=== PATIENT | male | born 1995 | race Caucasian/White ===

== ENCOUNTER 2016-09-23 18:28 | Emergency (ER) | payer SELFPAY ==
[2016-09-23 18:32] VITALS: BP 144/74; PULSE 68; TEMP 98; BMI 24.3
[2016-09-23] MEDS ORDERED: SULFAMETHOXAZOLE/TRIMETHOPRIM 800MG/160MG D.S. TABLET PO ONE (19:21)
[2016-09-23] MEDS ORDERED: BACITRACIN 30 GM TUBE TOPICAL OINTMENT ONE (19:21)
[2016-09-23] MEDS ORDERED: SULFAMETHOXAZOLE/TRIMETHOPRIM 800MG/160MG D.S. TABLET ONE (19:27)
--- NOTE | 2016-09-23 19:28 | PDOC ---
History of Present Illness - General Chief Complaint: Ingrown toenail Stated Complaint: TOE INJURY Time Seen by Provider: 09/23/16 19:05 History Source: Patient Exam Limitations: No Limitations - History of Present Illness Initial Comments: 09/23/16 19:22 ER with complaints of pain, swelling, and infection of his left great toenail. 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 Denies drainage, denies any recent trauma, denies fevers. Timing/Duration: reports: getting worse Severity: Yes: mild, moderate Location: reports: feet (left ghreat toenail) Past History - Travel Traveled outside of the country in the last 30 days: No Close contact w/someone who was outside of country & ill: No - Past Medical History Allergies/Adverse Reactions: Allergies Allergy/AdvReac Type Severity Reaction Status Date / Time No Known Allergies Allergy Verified 09/23/16 18:32 Home Medications: Ambulatory Orders Sulfamethoxazole/Trimethoprim [Bactrim *Ds*] 1 each PO BID #14 tablet 09/23/16 Other medical history: PATIENT DENIES MEDICAL HISTORY - Psycho/Social/Smoking Cessation Hx Suicidal Ideation: No Smoking History: Never smoked Hx Alcohol Use: No Drug/Substance Use Hx: No Review of Systems - Review of Systems Able to Perform ROS?: No Is the patient limited Pashto proficient: No Constitutional: Yes: See HPI. No: Symptoms Reported HEENTM: Yes: See HPI. No: Symptoms Reported Musculoskeletal: No: Symptoms Reported Integumentary: Yes: Symptoms Reported, See HPI, Erythema Neurological: No: Symptoms reported All Other Systems: Reviewed and Negative *Physical Exam - Vital Signs Last Vital Signs Temp Pulse Resp BP Pulse Ox 98.0 F 68 18 144/74 99 09/23/16 18:30 09/23/16 18:30 09/23/16 18:30 09/23/16 18:30 09/23/16 18:30 - Physical Exam General Appearance: Yes: Nourished, Appropriately Dressed, Apparent Distress, Mild Distress Musculoskeletal: negative: Vertebral Tenderness Extremity: positive: Normal Inspection, Normal Range of Motion, Tender Integumentary: positive: Dry, Warm, Pale, Other (erythematous, swollen left lateral aspect of great toenail with pyogenic granuloma in approximately 5 mm x 5 mm. 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 We will start on antibiotics to help clear some of the inflammation, encourage soaking and follow-up with podiatry for ultimate excision *DC/Admit/Observation/Transfer Diagnosis at time of Disposition: Granuloma, pyogenic - Discharge Dispostion Disposition: HOME Condition at time of disposition: Stable Admit: No - Prescriptions Prescriptions: Sulfamethoxazole/Trimethoprim [Bactrim *Ds*] 1 each PO BID #14 tablet - Patient Instructions Printed Discharge Instructions: DI for Paronychia Additional Instructions: Rest, keep hand elevated Avoid heavy lifting or strenuous activity until healed Soak toe every 2-3 hours while awake for the next 2-3 days to keep continue to allow drainage Reapply bacitracin ointment and bulky dressing after each soaking. May use ibuprofen or Tylenol for pain relief Followup with private physician in one to 2 days for wound check as needed Return immediately to emergency department or private doctor's for worsening redness, swelling, pain, streaking Take all of antibiotics until completed - Post Discharge Activity Work/School Note: Back to Work
[2016-09-23] MEDS ORDERED: BACITRACIN 30 GM TUBE TOPICAL OINTMENT TP SCH (22:00)
== END 2016-09-23 19:49 | disposition home or self-care (01) ==
LOC: JERFT 18:28
DX: L98.0 Pyogenic granuloma (principal)
CPT/HCPCS: 99281-25